=== PATIENT | male | born 1980 | race Caucasian/White ===

== ENCOUNTER 2023-02-25 09:31 | Emergency (ER) | payer OTHER ==
--- NOTE | 2023-02-25 10:34 | XRAY Report ---
PROCEDURE: Foot 3 View LT INDICATIONS: Trauma TECHNIQUE: 3 views of the foot were acquired. COMPARISON: None. FINDINGS: Bones: No fractures or dislocations. No suspicious bony lesions. Soft tissues: No suspicious soft tissue calcifications or masses. IMPRESSION: No acute bony abnormality. Reviewed by: Saqib Ferrell MD on 02/25/2023 10:32 AM PDT Approved by: Saqib Ferrell MD on 02/25/2023 10:32 AM PDT Station ID: [id number]
--- NOTE | 2023-02-25 10:52 | ED Physician Documentation ---
PD HPI LOWER EXT INJURY - Stated complaint Stated Complaint: LT FOOT PAIN - Chief complaint Chief Complaint: Ext Problem - History obtained from History obtained from: Patient - Additional information Additional information: The patient comes to the emergency department with chief complaint of left foot pain after rolling his ankle couple of days ago. He states he has pain On the lateral aspect of his left foot and has some pain with weightbearing. He denies any ankle pain. He has noticed mild swelling. No prior injury to that foot before. He was not injured in any other way. PD PAST MEDICAL HISTORY - Past Medical History Past Medical History: No - Past Surgical History Past Surgical History: Yes Ortho: Shoulder arthroplasty - Present Medications Home Medications: Ambulatory Orders Medication Instructions Recorded Confirmed Ibuprofen [Motrin] 600 mg PO Q6H PRN #30 tab 09/28/13 02/25/23 Acetaminophen [Aphen] 325 mg PO Q4HR PRN 02/25/23 02/25/23 HYDROcod/ACETAM 5/325 [[place] 5/325] 1 - 2 tablet PO Q6H PRN #10 tablet 02/25/23 - Allergies Allergies/Adverse Reactions: Allergies Allergy/AdvReac Type Severity Reaction Status Date / Time No Known Drug Allergies Allergy Verified 02/25/23 09:55 - Social History Does the pt smoke?: No Smoking Status: Never smoker Does the pt drink ETOH?: No Does the pt have substance abuse?: No - Immunizations Immunizations are current?: Yes PD ED PE NORMAL - Vitals Vital signs reviewed: Yes - General General: Alert and oriented X 3, No acute distress, Well developed/nourished - HEENT HEENT: Atraumatic, PERRL, EOMI, Moist mucous membranes - Neck Neck: Supple, no meningeal sign - Cardiac Cardiac: Strong equal pulses - Respiratory Respiratory: No respiratory distress - Derm Derm: Normal color, Warm and dry, No rash - Extremities Extremities: No deformity, Other (Mild edema and tenderness over the proximal lateral left foot, extending down to the fifth metatarsal bone.) - Neuro Neuro: Alert and oriented X 3, No motor deficit, No sensory deficit - Psych Psych: Normal mood, Normal affect Results - Vitals Vitals: Oxygen O2 Source Room air - Rads (name of study) Left foot x-ray series Relevant Findings:: Final report received, See rad report PD Medical Decision Making - ED course Complexity details: reviewed results, re-evaluated patient, considered differential, d/w patient ED course: The patient was worked up with a left foot x-ray series which was negative. We discussed he has most likely sprained his foot. The patient stated that he did not want any splint or crutches and that he was walking reasonably well with just a shoe. We have discussed limitation of activities to Nonstrenuous and nonhigh impact activities until his foot is feeling completely better. We have discussed symptomatic management at home and the usual indications for follow-up and return. Departure - Departure Disposition: 01 Home, Self Care Clinical Impression: Foot sprain Qualifiers: Encounter type: initial encounter Laterality: left Qualified Code(s): S93.602A - Unspecified sprain of left foot, initial encounter Condition: Stable Instructions: ED Sprain Foot Prescriptions: HYDROcod/ACETAM 5/325 [[place] 5/325] 1 - 2 tablet PO Q6H PRN #10 tablet PRN Reason: Pain Comments: Your x-rays look goodno broken bones. You have most likely sprained your foot and this will get better over the next few weeks. Please keep weight off of it is much as possible until the foot feels well enough to walk on. You may take Tylenol and ibuprofen if needed for the pain. If this is not effective enough, you may substitute the narcotic pain medication for the Tylenol. A prescription for this has been electronically transmitted to the [facility] pharmacy in [place]. You may also apply ice packs to the painful area for 20 to 30 minutes at a time. Discharge Date/Time: 02/25/23 10:58
[2023-02-25 10:58] VITALS: BP 134/87
== END 2023-02-25 10:58 | disposition home or self-care (01) ==
LOC: ED 09:31
DX: S93.602A Unspecified sprain of left foot, initial encounter (principal); X50.1XXA Overexertion from prolonged static or awkward postures, initial encounter; Y99.1 Military activity
CPT/HCPCS: 99283

== ENCOUNTER 2024-06-06 09:37 | Emergency (ER) | payer OTHER ==
[2024-06-06 09:49] VITALS: O2SAT 100
--- NOTE | 2024-06-06 09:52 | ED Physician Documentation ---
PD HPI LOWER EXT INJURY - Stated complaint Stated Complaint: RT TOE PX/SWELLING - Chief complaint Chief Complaint: Ext Problem - History obtained from History obtained from: Patient - History of Present Illness PD HPI LOW EXT INJURY LOCATION: Right, Toe Type of injury: No: Fall, Blunt / blow, Puncture wound Timing - onset: How many days ago (2-3) Timing - duration: Days Timing - details: Gradual onset, Still present (much more severe tidat,) Improved by: No: Meds (Ibuprofen and Tylenol.) Worsened by: Moving, Palpating Associated symptoms: Swelling, Discolored (very red localized at great toe MTP.) Similar symptoms before: Has not had sx before Review of Systems Constitutional: denies: Fever, Chills Skin: denies: Abrasion (s), Laceration (s) PD PAST MEDICAL HISTORY - Past Medical History Past Medical History: Yes Musculoskeletal: Other - Past Surgical History Past Surgical History: Yes Ortho: Shoulder arthroplasty - Present Medications Home Medications: Ambulatory Orders Medication Instructions Recorded Confirmed Ibuprofen [Motrin] 600 mg PO Q6H PRN #30 tab 09/28/13 02/25/23 Acetaminophen [Aphen] 325 mg PO Q4HR PRN 02/25/23 02/25/23 HYDROcod/ACETAM 5/325 [[place] 5/325] 1 - 2 tablet PO Q6H PRN #10 tablet 02/25/23 Colchicine 0.6 mg PO QID #20 tablet 06/06/24 HYDROcod/ACETAM 5/325 [[place] 5/325] 1 ea PO Q6H PRN #12 tablet 06/06/24 Naproxen 500 mg PO TID #15 tab 06/06/24 - Allergies Allergies/Adverse Reactions: Allergies Allergy/AdvReac Type Severity Reaction Status Date / Time No Known Drug Allergies Allergy Verified 06/06/24 09:47 - Social History Does the pt smoke?: No Smoking Status: Never smoker Does the pt drink ETOH?: No Does the pt have substance abuse?: No - Immunizations Immunizations are current?: Yes - POLST Patient has POLST: No PD ED PE NORMAL - Vitals Vital signs reviewed: Yes - General General: Alert and oriented X 3, Well developed/nourished, Other (appears in pain at great toe. Denies prior history of gout, recent injury. ) - Extremities Extremities: Other (right great toe MTP with marked redness and tenderness localized without proximal red streaks. No skin sores. ) - Neuro Neuro: No motor deficit, No sensory deficit Results - Vitals Vitals: Vital Signs - 24 hr 06/06/24 06/06/24 09:45 10:55 Temperature 36.4 C L Heart Rate 94 88 Respiratory 20 16 Rate Blood Pressure 147/103 H 137/84 H O2 Saturation 100 100 Oxygen O2 Source Room air PD Medical Decision Making - ED course Complexity details: considered differential (no history of gout, but it looks and acts like it. Most moss is it does not seem infectious. Can treat anti- inflammatories. ), d/w patient Departure - Departure Disposition: Home, Self Care Clinical Impression: Pain of right great toe Gout Qualifiers: Gout site: toe Gout etiology: unspecified cause Chronicity: acute Laterality: right Qualified Code(s): M10.9 - Gout, unspecified Condition: Stable Record reviewed to determine appropriate education?: Yes Instructions: ED Arthritis Gout Follow-Up: GEETHA ROLON MD [Primary Care Provider] - Prescriptions: Colchicine 0.6 mg PO QID #20 tablet Naproxen 500 mg PO TID #15 tab HYDROcod/ACETAM 5/325 [[place] 5/325] 1 ea PO Q6H PRN #12 tablet PRN Reason: Pain Comments: This does seem like gout. Commonly this can be a "worn off" episode without recurrence for a while. As such we would treat it for the current episode. If you have recurring episodes in the near future, then your primary care would want to investigate some blood tests and potentially prophylactic medicine. For the current, we can go with a combination of anti-inflammatories of NSAIDs, steroid and colchicine. We did give a dose orally of a steroid here which will help from that category. I also prescribed colchicine and naproxen. To that add Tylenol/acetaminophen 500 to 650 mg every 4-6 hours if needed or hydrocodone/acetaminophen if needed for worse pain. Warm towels or compresses to the area periodically through the day. Minimize walking and such because of the pain and progress activity as tolerated. Recheck if not improving well over the next few days and resolved by 3 to 5 days. I sent your prescriptions to [facility] pharmacy. I am prescribing a short course of narcotic pain medication for you. These are potentially dangerous and addictive medications that should be used carefully. These medications may constipate you. Take an [id number] stool softener such as docusate twice daily with plenty of water while taking these medications. If you go 24 hours without a bowel movement, take [id number] MiraLAX, per package instructions. Do not drink or drive while taking these medications. If you received narcotic or sedating medications while in the emergency department do not drive for 24 hours. Store this medication in a safe, secure place and out of reach of children. It is a violation of federal law to give or sell this medication to another person or to use in a manner other than prescribed. The ED will not refill narcotic prescriptions, including prescriptions lost or stolen. You can dispose of unwanted medications at the [facility]'s office or at several pharmacies such as [facility]. Forms: PCP List, Activity restrictions Discharge Date/Time: 06/06/24 10:56
[2024-06-06] MEDS: NAPROXEN 250 MG TABLET PO STA (10:30)
[2024-06-06] MEDS: dexAMETHasone 4 MG TABLET PO STA (10:30)
[2024-06-06] MEDS: ACETAMINOPHEN 500 MG TABLET PO STA (10:31)
[2024-06-06 11:01] VITALS: BP 137/84
== END 2024-06-06 10:56 | disposition home or self-care (01) ==
LOC: ED 09:37
DX: M10.9 Gout, unspecified (principal); Z79.899 Other long term (current) drug therapy
CPT/HCPCS: 99283; A9270; J8540